=== PATIENT | male | born 1970 | race Caucasian/White ===

== ENCOUNTER 2019-04-16 20:28 | Emergency (ER) | payer OTHER ==
[~2019-04-16] VITALS: Ht 175.3 cm; Wt 83.9 kg
[2019-04-16] MEDS ORDERED: DICY20TA (20:51)
[2019-04-16] MEDS ORDERED: SYNTHROID150 MCG (20:55)
== END 2019-04-16 22:40 | disposition home or self-care (01) ==
LOC: ER 20:28
DX: K52.9 Noninfective gastroenteritis and colitis, unspecified (principal)

== ENCOUNTER 2019-04-20 22:06 | Inpatient (IN) | payer OTHER ==
[~2019-04-20] VITALS: Ht 177.8 cm; Wt 56.7 kg
[~2019-04-20 22:06] MED LIST: DICY20TA; SYNTHROID150 MCG
[2019-04-20] MEDS ORDERED: PEPCID AC20 MG PO (22:34)
--- NOTE | 2019-04-20 22:34 | NUR ---
PACIENTE ALERTA ORIENTADO X 3 REFIERE TENER DOLOR ABDOMINAL QUE SE CORRE AL LADO DERECHO, EL DOLOR COMENSO EN EL GADIEL DE HOY SE UBICA EN AREA DE OBSERVACION
--- NOTE | 2019-04-20 23:27 | NUR ---
PACIENTE ALERTA Y ORIENTADO X3. SE ORIENTA SOBRE TX Y PROCEDIMEIENTO A REALIZAR Y REFIERE ENTENDER. SE REALIZA MUESTRAS DE LABORATORIO BAJO MEDIDAS ASEPTICAS. CANALIZACION PATENTE Y TICO DE EDEMA Y ERITEMA. SE ADMINISTRA MEDICAMENTOS NOHEMY ORDEN MEDICA. PENDIENTE MUESTRA DE U/A PACIENTE CON ENVASE EN MANO Y CT ABDOMEN Y PELVICO NOTIFICADO A LA CARRILLO. TERI.
--- NOTE | 2019-04-21 | NUR ---
LE REALIZARON CT A PACIENTE ORDENADO POR . SE LLAMO A LA DRA. MICHAEL PARA LECTURA DE CT A LAS 1210AM. 1215AM SE ADMINISTRA MEDICAMENTOS NOHEMY ORDEN MEDICA LUEGO DE ORIENTAR A PACIENTE SOBRE TX A RECIBIR. SE MANTIENE BAJO OBSERVACION POR CAMBIOS SIGNIFICATIVOS.
[2019-05-04] MEDS ORDERED: OMEPRAZOLE20 MG PO (14:37)
[2019-05-04] MEDS ORDERED: INTESTINEX680 M1 PO (14:37)
[2019-05-04] MEDS ORDERED: LEVAQUIN500 MG PO (14:37)
== END 2019-05-04 16:40 | disposition home or self-care (01) | DRG 392 ==
LOC: ER 22:06 → SURH 04-21 11:57
PROVIDERS: ADMIT Surgery
PROC: 02HV33Z Insertion of Infusion Device into Superior Vena Cava, Percutaneous Approach (ICD-10-PCS; principal; 2019-04-23)
PROC: BW21Y0Z Computerized Tomography (CT Scan) of Abdomen and Pelvis using Other Contrast, Unenhanced and Enhanced (ICD-10-PCS; 2019-04-26)
PROC: 3E0336Z Introduction of Nutritional Substance into Peripheral Vein, Percutaneous Approach (ICD-10-PCS; 2019-04-28)
PROC: 0W9F30Z Drainage of Abdominal Wall with Drainage Device, Percutaneous Approach (ICD-10-PCS; 2019-04-29)
PROC: BW21Y0Z Computerized Tomography (CT Scan) of Abdomen and Pelvis using Other Contrast, Unenhanced and Enhanced (ICD-10-PCS; 2019-05-02)
DX: K57.20 Diverticulitis of large intestine with perforation and abscess without bleeding (principal); E03.8 Other specified hypothyroidism; K52.89 Other specified noninfective gastroenteritis and colitis; B95.2 Enterococcus as the cause of diseases classified elsewhere

== ENCOUNTER 2019-05-28 15:18 | Inpatient (IN) | payer OTHER ==
[~2019-05-28] VITALS: Ht 175.3 cm; Wt 78.9 kg
[~2019-05-28 15:18] MED LIST changes: +INTESTINEX680 M1 PO; +LEVAQUIN500 MG PO; +OMEPRAZOLE20 MG PO; +PEPCID AC20 MG PO
[2019-06-19] MEDS ORDERED: CIPRO500 MG PO (12:54)
[2019-06-19] MEDS ORDERED: METRONIDAZOLE500 MG PO (12:55)
[2019-06-19] MEDS ORDERED: INTESTINEX680 M1 PO (12:55)
== END 2019-06-19 13:43 | disposition home or self-care (01) | DRG 329 ==
LOC: EDSTATUS 06-10 09:00 → ADM 06-10 09:00 → O/R 06-15 07:17 → SURH 06-15 07:17
PROVIDERS: ADMIT Surgery
PROC: 0DQ84ZZ Repair Small Intestine, Percutaneous Endoscopic Approach (ICD-10-PCS; 2019-06-15)
PROC: 0DJD8ZZ Inspection of Lower Intestinal Tract, Via Natural or Artificial Opening Endoscopic (ICD-10-PCS; 2019-06-15)
PROC: 0DTN4ZZ Resection of Sigmoid Colon, Percutaneous Endoscopic Approach (ICD-10-PCS; principal; 2019-06-15 07:45)
DX: K57.20 Diverticulitis of large intestine with perforation and abscess without bleeding (principal); K65.0 Generalized (acute) peritonitis; K91.71 Accidental puncture and laceration of a digestive system organ or structure during a digestive system procedure; E03.8 Other specified hypothyroidism

== ENCOUNTER 2019-06-08 10:38 | Outpatient (CLI) | payer OTHER | END 2019-06-08 10:48 | disposition home or self-care (01) | LOC: EKG 10:38 | DX: I10 Essential (primary) hypertension (principal) ==